=== PATIENT | female | born 1975 | race Caucasian/White ===

== ENCOUNTER 2017-05-30 11:20 | Outpatient (RCR) | payer OTHER ==
[2006-05-19 07:44] VITALS: TEMP 98.1
== END 2017-06-14 ==
LOC: MC.RAD
DX: M79.672 Pain in left foot (principal)

== ENCOUNTER → 2017-05-30 | Outpatient (CLI) | payer BC ==
[2006-05-19 07:44] VITALS: TEMP 98.1
== END ==
LOC: MC.RAD 11:23
DX: Z12.31 Encounter for screening mammogram for malignant neoplasm of breast (principal)

== ENCOUNTER → 2018-07-05 | Outpatient (CLI) | payer BC ==
[2006-05-19 07:44] VITALS: TEMP 98.1
== END ==
LOC: MC.RAD 10:31
DX: Z12.31 Encounter for screening mammogram for malignant neoplasm of breast (principal)

== ENCOUNTER 2018-11-20 10:30 | Outpatient (RCR) | payer OTHER ==
[2006-05-19 07:44] VITALS: TEMP 98.1
== END 2019-02-18 | disposition home or self-care (01) ==
LOC: WSOH
DX: M25.511 Pain in right shoulder (principal); X50.0XXA Overexertion from strenuous movement or load, initial encounter; Z87.891 Personal history of nicotine dependence; Z79.899 Other long term (current) drug therapy

== ENCOUNTER 2018-11-20 15:50 | Outpatient (RCR) | payer OTHER ==
[2006-05-19 07:44] VITALS: TEMP 98.1
== END 2018-11-23 09:09 | disposition home or self-care (01) ==
LOC: WSOH 15:50
DX: M25.511 Pain in right shoulder (principal); X50.0XXA Overexertion from strenuous movement or load, initial encounter; Y93.E9 Activity, other interior property and clothing maintenance; Y92.214 College as the place of occurrence of the external cause; Y99.0 Civilian activity done for income or pay; Z87.891 Personal history of nicotine dependence; Z79.899 Other long term (current) drug therapy

== ENCOUNTER → 2019-07-06 | Outpatient (CLI) | payer BC ==
[2006-05-19 07:44] VITALS: TEMP 98.1
== END ==
LOC: MC.RAD 14:42
DX: Z12.31 Encounter for screening mammogram for malignant neoplasm of breast (principal)

== ENCOUNTER 2019-12-17 13:33 | Outpatient (RCR) | payer OTHER ==
[2006-05-19 07:44] VITALS: TEMP 98.1
== END 2019-12-19 11:54 | disposition still patient (30) ==
LOC: WSOH 13:33
DX: S61.213A Laceration without foreign body of left middle finger without damage to nail, initial encounter (principal); I10 Essential (primary) hypertension; F32.9 Major depressive disorder, single episode, unspecified; Y99.0 Civilian activity done for income or pay

== ENCOUNTER → 2020-07-17 | Outpatient (CLI) | payer BC ==
[2006-05-19 07:44] VITALS: TEMP 98.1
== END ==
LOC: MC.RAD 07-08 17:00
DX: Z12.31 Encounter for screening mammogram for malignant neoplasm of breast (principal)

== ENCOUNTER → 2021-09-24 | Outpatient (CLI) | payer BC ==
[2006-05-19 07:44] VITALS: TEMP 98.1
== END ==
LOC: MC.RAD 13:38
DX: Z12.31 Encounter for screening mammogram for malignant neoplasm of breast (principal)

== ENCOUNTER → 2024-04-26 | Outpatient (CLI) | payer BC ==
[2006-05-19 07:44] VITALS: PULSE 72; TEMP 98.1
== END ==
LOC: COL.CARD 04:28
DX: R00.2 Palpitations (principal)